=== PATIENT | male | born 1940 | race Caucasian/White ===

== ENCOUNTER 2024-06-09 12:59 | Emergency (ER) | payer MEDICARE, SELFPAY ==
[2024-06-09 13:08] VITALS: BP 144/84
[2024-06-09 13:29] LABS: % Basophils 0.5 % (0-2); % Eosinophils 1.1 % (0-6); % Immature Granulocytes 0.5 % (0-0.5); % Monocytes 13.6 % (1.7-9.3); % Neutrophils 59.3 % (42.2-75.2); Absolute Eosinophils 0.1 10^3/uL (0-0.7); Absolute Lymphocytes 1.4 10^3/uL (1.2-3.4); Absolute Monocytes 0.8 10^3/uL (0.1-0.6); Absolute Neutrophils 3.3 10^3/uL (1.4-6.5); Hematocrit 38.7 % (39.0-52.0); Mean Corp Hgb Conc. 33.6 g/dL (33.0-37.0); Mean Corpuscular Volume 98.2 fL (80.0-94.0); Mean Platelet Volume 10.2 fL (7.4-10.4); Nucleated Red Blood Cells % 0 % (-); Platelet Count 181 10^3/uL (130-400); Red Blood Cell Count 3.94 10^6/uL (4.70-6.10); Red Cell Dist. Width 13.6 % (11.5-14.5); White Blood Cell Count 5.5 10^3/uL (4.8-10.8)
[2024-06-09 13:43] LABS: ALT (SGPT) 28 U/L (0-50); AST (SGOT) 30 U/L (17-59); Albumin 4.5 g/dl (3.5-5.0); Alkaline Phosphatase 98 U/L (38-126); Blood Urea Nitrogen 30 mg/dl (9-20); Calcium 8.8 mg/dl (8.4-10.2); Carbon Dioxide 24 mmol/L (22-30); Chloride 108 mmol/L (98-107); Glucose 111 mg/dl (70-99); Potassium 4.8 mmol/L (3.5-5.1); Sodium 139 mmol/L (135-145); Total Bilirubin 0.9 mg/dl (0.2-1.3); eGFR 43.02
[2024-06-09 13:54] LABS: Troponin I < 0.012 ng/ml
[2024-06-09] MEDS: TYLENOL 650 MG PO (14:57)
--- NOTE | 2024-06-09 14:59 | ED.GENMED ---
History of Present Illness
General
Chief Complaint: Chest Pain
Source: patient, family and previous hospital records
Exam Limitations: none
Time Seen by Provider: 06/09/24 14:36
Nursing documentation reviewed up to this point in time: agreed with
History of Present Illness
History of Present Illness:
83-year-old male PAF on Xarelto hyperlipidemia no history of CAD presents with pain described as a dull ache in his left shoulder left anterior chest wall since last evening, no nausea vomiting diaphoresis been constant with movement of his
shoulder, no diaphoresis no hemoptysis, no prior episodes
Past History
Past History
ED Past Medical History: Arrthythmia and Hypercholesterolemia
Social History
Tobacco: Non-smoker
Alcohol: None
Drug: None
Personal:
Living: with family
Employment: Retired
Review of Systems
Review of Systems
All Other Systems: Not applicable
EENT: Reports no symptoms
Respiratory: Reports no symptoms
Cardiac: Reports chest pain
ABD/GI: Reports no symptoms
: Reports no symptoms
Musculoskeletal: Reports muscle stiffness; Denies edema
Skin: Reports no symptoms
Phy Exam
Physical Exam
Physical Exam:
Physical Exam
General: no apparent distress, not acutely ill
Neck: No jaundice
Heart: s1/s2 regular rate and rhythm, no murmur. equal radial pulses.
Lungs: no acute respiratory distress. clear bilaterally
Abdomen: Not tender
Neuro: alert and oriented. no focal neurological deficits
Skin: no rash
Psychiatric: well kept. interactive and cooperative
Extremities: no edema. no calf tenderness.
Scores
Heart Score for Chest Pain Patients
STEMI patient?: No
History: Slightly or Non-Suspicious
ECG: Normal
Age: >/= 65 years
Risk Factors: 1 or 2 Risk Factors
Troponin: </= Normal Limit
Heart Score for Chest Pain Patients: 3
Heart Score Risk: 2.5% MACE over next 6 weeks
Course
Orders/Labs/Results
Orders:
Orders
06/09/24 13:00
ECG [Electrocardiogram (*1)] Urgent
Reason for Study: Chest Pain
EKG- Treatment ONCE
06/09/24 13:19
Complete Blood Count/With Diff Urgent
Comprehensive Metabolic Panel Urgent
Troponin I Urgent
06/09/24 14:42
Acetaminophen [Tylenol] 650 mg PO NOW STA
CR Chest - 2 Views Urgent
Comment:
Reason For Exam: chest and shoulder pain
Abnormal Lab Results
06/09/24
13:19
RBC 3.94 L 10^6/uL
(4.70-6.10)
Hct 38.7 L %
(39.0-52.0)
MCV 98.2 H fL
(80.0-94.0)
MCH 33.0 H pg
(27.0-31.0)
Absolute Monos (auto) 0.8 H 10^3/uL
(0.1-0.6)
Monocytes % 13.6 H %
(1.7-9.3)
Chloride 108 H mmol/L
(98-107)
BUN 30 H mg/dl
(9-20)
Creatinine 1.6 H mg/dL
(0.7-1.3)
Glucose 111 H mg/dl
(70-99)
06/09/24 13:19
06/09/24 13:19
Vital Signs
Initial and Last Documented VS:
Initial Vital Signs
Temp Pulse Resp BP Pulse Ox
98.3 F 65 18 144/84 98
06/09/24 13:08 06/09/24 13:08 06/09/24 13:08 06/09/24 13:08 06/09/24 13:08
Last Documented Vital Signs
Temp Pulse Resp BP Pulse Ox
98.3 F 52 16 154/86 97
06/09/24 13:08 06/09/24 15:03 06/09/24 15:03 06/09/24 15:03 06/09/24 15:03
MDM/Problems Addressed
Differential Diagnosis Includes:
Noncardiac chest pain radicular pain no signs of acute embolus either to the long or to the arm not tachycardic not tachypneic strong distal pulses
MDM/Problems Addressed:
Chest pain
Chronic conditions affecting care:
A-fib'
Acute Exacerbation and/or Progression of Chronic Illness:
A-fib
*Radiology
Radiology exam reviewed: preliminary read by ED provider
*Pulse Oximetry
Patient hypoxic: no
*EKG
Interpreted by ED Provider?: Yes
Interpretation: normal
Comparison EKG: no comparison EKG present
Heart Rate: 70
Rate: normal
Rhythm: sinus
Ischemia: no ischemia
*Lift Driver Interpretation
Rate: normal
Interpretation: normal
Heart Rate: 70
Rhythm: sinus
*Critical Care Note
Total Time (30-74mins, 75-104mins- exclusive of procedures): Not Applicable
Update Note
Update Note:
Update, symptoms are atypical for ACS no diaphoresis no nausea vomiting does not go to the back, PE is unlikely he is anticoagulated, he has an undetectable troponin, not tachycardic not tachypneic chest x-ray noted
ED Attending Note
-
Portions of this chart may have been created with voice recognition software.� Occasional wrong word or��sound alike� substitutions may have occurred due to the inherent limitations of voice recognition software.
Discharge Plan
Departure
Patient Disposition: Home (Routine Discharge)
Date of Disposition: 06/09/24
Time of Disposition: 15:48
Patient with high blood pressure during this ER visit?: No
Condition: Good
Discharge Problem:
Chest pain
Instructions: Chest Pain PCP Follow Up
Activity Restrictions/Additional Instructions:
Rest, Tylenol as needed for pain every 4-6 hours, follow-up with Dr. Madrigal
Interventions
Interventions:
*Risk Screen - Suicide Last Done: 06/09/24 13:08
*General Assessment Last Done: 06/09/24 13:08
*Neglect/Abuse Screening Last Done: 06/09/24 13:08
ED- Fall Risk Assessment Last Done: 06/09/24 15:03
*ED COVID-19 Vaccine History Last Done: 06/09/24 15:03
ED- Cardiac Assessment Last Done: 06/09/24 15:03
Discharge Date and Time
Print Language: NIGERIEN
[2024-06-09 15:03] VITALS: BP 154/86; BMI 27.9
== END 2024-06-09 16:28 | disposition home or self-care (01) ==
LOC: EMR 12:59
PROVIDERS: Emergency Medicine; EMERGENCY PHYSICIAN Emergency Medicine; FAMILY PHYSICIAN Internal Medicine
DX: R07.9 Chest pain, unspecified (principal); E78.00 Pure hypercholesterolemia, unspecified; I48.0 Paroxysmal atrial fibrillation; Z79.01 Long term (current) use of anticoagulants
CPT/HCPCS: 99285; 71046; 80053; 84484; 85025; 93005

== ENCOUNTER → 2025-01-08 06:52 | Outpatient (REF) | payer MEDICARE, OTHER, SELFPAY ==
[2025-01-08] VITALS (8 sets, daily range): BP systolic 53–133; BP diastolic 61–75
[2025-01-08 07:17] LABS: Hematocrit 27.5 % (39.0-52.0); Hemoglobin 9.5 g/dL (13.0-18.0); Mean Corp Hgb Conc. 34.5 g/dL (33.0-37.0); Mean Corpuscular Volume 114.6 fL (80.0-94.0); Nucleated Red Blood Cells % 0 % (-); Platelet Count 175 10^3/uL (130-400); Red Cell Dist. Width 14.8 % (11.5-14.5)
[2025-01-08] MEDS: ATIVAN 0.5 MG PO (07:23)
[2025-01-08 08:00] LABS: INR 1.46; PT 18.0 Sec (11.4-14.6)
== END ==
LOC: RADI 06:52
PROVIDERS: ATTENDING PHYSICIAN Internal Medicine Hematology & Oncology; FAMILY PHYSICIAN Internal Medicine; REFERRING PHYSICIAN Physician Assistant
DX: D46.9 Myelodysplastic syndrome, unspecified (principal); N18.31 Chronic kidney disease, stage 3a; D68.8 Other specified coagulation defects
CPT/HCPCS: 36415; 38222; 77012; 85025; 85610; 88305; 88311; 88312; 88313

== ENCOUNTER 2025-02-05 21:01 | Inpatient (IN) | payer MEDICARE, OTHER, SELFPAY ==
[2025-02-05 14:18] VITALS: BP 120/76
[2025-02-05 14:43] LABS: Hematocrit 26.8 % (39.0-52.0); Hemoglobin 8.9 g/dL (13.0-18.0); Mean Corp Hgb Conc. 33.2 g/dL (33.0-37.0); Mean Corpuscular Volume 115.5 fL (80.0-94.0); Platelet Count 158 10^3/uL (130-400); Red Cell Dist. Width 14.6 % (11.5-14.5)
[2025-02-05 14:49] LABS: ALT (SGPT) 17 U/L (0-50); AST (SGOT) 20 U/L (17-59); Albumin 4.1 g/dl (3.5-5.0); Alkaline Phosphatase 98 U/L (38-126); Blood Urea Nitrogen 38 mg/dl (9-20); Calcium 8.4 mg/dl (8.4-10.2); Carbon Dioxide 24 mmol/L (22-30); Chloride 105 mmol/L (98-107); Glucose 109 mg/dl (70-99); Potassium 5.1 mmol/L (3.5-5.1); Sodium 136 mmol/L (135-145); Total Protein 6.8 g/dl (6.3-8.2); eGFR 34.79
[2025-02-05 15:04] LABS: Absolute Neutrophils -Man Diff 10.3 10^3/uL (1.4-6.5); Platelets Checked Yes
[2025-02-05 15:05] LABS: Anisocytosis 1+; Hypochromasia Slight; Normal RBC Morphology No; Polychromasia 1+; Stomatocytes 1+; Total Cells Counted 100
--- NOTE | 2025-02-05 17:44 | ED.GENMED ---
History of Present Illness
General
Chief Complaint: Musculo-Skeletal Complaint
Source: patient and spouse
Exam Limitations: none
Time Seen by Provider: 02/05/25 17:25
Nursing documentation reviewed up to this point in time: agreed with
History of Present Illness
History of Present Illness:
Patient presents to ED secondary to sudden onset of left hip pain, while he was in bed last night, which has worsened. Denies direct trauma. Denies fever or chills. Denies loss of sensation or weakness. Pain is minimal at rest, but worse with
movement, especially when weightbearing. Denies previous history of similar symptoms. Denies recent change in activities. Patient is very active, frequently biking outdoors with his , including the past 2 days. Does not have history of
previous hip pain. Of note, patient reports atraumatic right wrist pain and elbow pain earlier this year, which resolved over time spontaneously. Patient's past medical history is significant for left knee joint infection from Lyme's disease.
Past History
Past History
ED Past Medical History: Arrthythmia and Hypercholesterolemia
Social History
Tobacco: Non-smoker
Alcohol: None
Drug: None
Personal:
Living: with family
Employment: Retired
Review of Systems
Review of Systems
Allergies reviewed?: Yes
All Other Systems: ROS reviewed and negative except as documented in HPI and ROS
Constitutional: Reports no symptoms
Respiratory: Reports no symptoms
Cardiac: Reports no symptoms
ABD/GI: Reports no symptoms
Musculoskeletal: Reports other (hip pain)
Skin: Reports no symptoms
Neurological: Reports no symptoms
Phy Exam
Physical Exam
Physical Exam:
Physical Exam
General: no apparent distress, not acutely ill. afebrile
Head: nc/at. eomi
Neck: supple. normal range of motion.
Neuro: alert and oriented x 3. no focal neurological deficits
Skin: no rash
Psychiatric: well kept. interactive and cooperative
Extremities: mild left hip pain w elevation and internal rotation. no obvious deformity/erythema/swelling/ecchymosis
Course
Orders/Labs/Results
Orders:
Orders
02/05/25 14:24
Complete Blood Count/With Diff Urgent
Comprehensive Metabolic Panel Urgent
Lyme Progressive Urgent
Comment: ADDON
Manual Differential Urgent
02/05/25 17:42
Add On- LAB Urgent
Tests Added?: lyme titer
CR Hip - LT w/wo Pel 2-3 Vw* Urgent
Comment:
Reason For Exam: pain
Include a pelvis x-ray?: Yes
02/05/25 17:55
US Non Vasc LOWER Ext LT Urgent
Comment:
Reason For Exam: left hip pain, potential fluid collection
02/05/25 20:32
COVID-19 Antigen Urgent
Source: Nasal Swab
Lactic Acid Q4H
Comment: CANCEL 2nd LACTIC ACID IF 1st LACTIC ACID IS LESS THAN 2
Blood Culture Q30M
GIOVANA Source: Blood/Venous
Specimen Description:
Blood Culture Q30M
GIOVANA Source: Blood/Venous
Specimen Description:
02/05/25 20:49
Admit/Transfer Patient As Directed
Co-Sign Provider:
Level of Care: Inpatient admission
Assign to:: Medical/Surgical
Physician / Group: rigo
Diagnosis: joint effusion
Reason for Hospitalization: joint effusion
Expected length of stay greater than two midnights?: Yes
ELOS- Estimated Length of Stay in days: 2
I certify the patient meets the requirements for IP care: Yes
PRN Pain Medication Management As Directed
May give lesser potent ordered pain med per pt: Yes
preference::
Protocol:: Medication orders for pain may be administered in a
manner that supports deferring to patient preference
when the pt is:
- Requesting an ordered lesser potent pain medication.
Least to most potent pain medications are defined
as: acetaminophen < NSAID < tramadol < opioids
(morphine, oxycodone, hydromorphone).
- Requesting a lesser dose of the same medication IF
ORDERED.
- Requesting a less intrusive route of administration
if both routes are prescribed by the provider (PO <
IV).
02/05/25 20:51
Code Status As Directed
Resuscitation Status: Do not resuscitate
Reached after discussion with pt or family/Healthcare POA: Yes
02/05/25 20:52
DNR Bracelet Application ONCE
02/06/25 00:00
Lactic Acid Q4H
Comment: CANCEL 2nd LACTIC ACID IF 1st LACTIC ACID IS LESS THAN 2
Abnormal Lab Results
02/05/25
14:24
WBC 16.4 H 10^3/uL
(4.8-10.8)
RBC 2.32 L 10^6/uL
(4.70-6.10)
Hgb 8.9 L g/dL
(13.0-18.0)
Hct 26.8 L %
(39.0-52.0)
MCV 115.5 H fL
(80.0-94.0)
MCH 38.4 H pg
(27.0-31.0)
RDW 14.6 H %
(11.5-14.5)
Abs Neuts (Manual) 10.3 H 10^3/uL
(1.4-6.5)
Lymphocytes (Manual) 7 L %
(20-51)
Monocytes (Manual) 29 H %
(2-9)
BUN 38 H mg/dl
(9-20)
Creatinine 1.9 H mg/dL
(0.7-1.3)
Glucose 109 H mg/dl
(70-99)
Total Bilirubin 1.5 H mg/dl
(0.2-1.3)
02/05/25 14:24
02/05/25 14:24
Vital Signs
Initial and Last Documented VS:
Initial Vital Signs
Temp Pulse Resp BP Pulse Ox
98.2 F 84 16 120/76 95
02/05/25 14:18 02/05/25 14:18 02/05/25 14:18 02/05/25 14:18 02/05/25 14:18
Last Documented Vital Signs
Temp Pulse Resp BP Pulse Ox
99.9 F 82 16 151/71 96
02/05/25 20:43 02/05/25 17:54 02/05/25 17:54 02/05/25 17:54 02/05/25 17:54
MDM/Problems Addressed
MDM/Problems Addressed:
Patient reports temperature of 100.5 at home earlier today. In light of patient's immunocompromise state, with recent diagnosed MDS, along with leukocytosis and atraumatic nature of left hip pain, raises possibility of potential infectious
etiology. Discussed with on-call ID physician, , who recommends withholding antibiotics until joint effusion can be aspirated.
Blood culture pending. Lyme titer pending
*Pulse Oximetry
SaO2: 95
Oxygen Mode of Delivery: Room air
Patient hypoxic: no
*Critical Care Note
Total Time (30-74mins, 75-104mins- exclusive of procedures): Not Applicable
ED Attending Note
-
Portions of this chart may have been created with voice recognition software.� Occasional wrong word or��sound alike� substitutions may have occurred due to the inherent limitations of voice recognition software.
Discharge Plan
Departure
Patient Disposition: Admit
Date of Disposition: 02/05/25
Time of Disposition: 20:04
Admit to: Telemetry
Presentation/result/management discussed w/ accepting MD/DO: Hospitalist
Discharge Problem:
Acute hip pain, Fever
Prescriptions:
No Action
latanoprost 0.005 % Drops
1 drp OPHTHALMIC (EYE) QPM
atorvastatin 40 mg Tablet
40 mg PO DAILY
carvedilol 25 mg Tablet
25 mg PO BID
lisinopril 20 mg Tablet
20 mg PO BID
Xarelto 15 mg Tablet
15 mg PO QPM
Referrals:
Clay Weber MD, [Family Provider, Internal Medicine]
Interventions
Interventions:
*Risk Screen - Suicide Last Done: 02/05/25 14:20
*General Assessment Last Done: 02/05/25 18:04
*Neglect/Abuse Screening Last Done: 02/05/25 14:20
*ED- Fall Risk Assessment Last Done: 02/05/25 18:03
*ED COVID-19 Vaccine History Last Done: 02/05/25 18:03
ED-Musculoskeletal Assessment Last Done: 02/05/25 18:06
Discharge Date and Time
Print Language: SWEDISH
[2025-02-05 17:54] VITALS: BP 151/71
[2025-02-05 18:01] VITALS: BMI 29.9
[2025-02-05 20:18] VITALS: BP 143/71
[2025-02-05 20:50] LABS: COVID-19 Antigen Negative (Negative)
--- NOTE | 2025-02-05 20:56 | HPS.HSE ---
Addendum entered and electronically signed by Cora Fernandez MD 02/05/25 21:08:
Patient with fever 100.5. Ordered synovial fluid studies with cell count with Gram stain, fluid crystals to evaluate for septic arthritis/gout. Check ESR and CRP.
Original Note:
Family Physician
-
Family Physician: Clay Weber
Chief Complaint
-
left hip pain
History of Present Illness
84-year-old male past medical history of recently diagnosed MDS 6 months ago, history of Lyme's disease involving the left knee status post multiple arthrocentesis 20 years ago, rheumatoid arthritis around 20 years ago previously on treatment with
infusion, paroxysmal atrial fibrillation on Xarelto, hypertension, hyperlipidemia, presenting with left hip pain since yesterday and weakness in the left leg. Pain is worse with movement or weightbearing. He has been active biking outdoors with
his over the past 2 days noticed the pain only yesterday. Today he had a fever of 100.5.
Over the past few weeks he has also developed pain in his right wrist which he thought was carpal tunnel and left elbow which have resolved.]
He is out in the garden frequently but denies any tick bites or rashes.
He states that he had Lyme's disease in his left knee over 20 years ago which required multiple rounds of arthrocentesis. This never recurred. He also had rheumatoid arthritis around the same time and was on immunotherapy and infusions which were
eventually stopped and he has not had any reoccurrence several years.
He denies any joint replacements.
He denies smoking or alcohol use.
No family history of rheumatoid conditions.
Medical History
Past Medical History
Past Medical History: Reports Other (MDS 6 months ago, history of Lyme's disease involving the left knee status post multiple arthrocentesis 20 years ago, rheumatoid arthritis around 20 years ago previously on treatment with infusion, paroxysmal
atrial fibrillation on Xarelto, hypertension, hyperlipidemia)
Past Surgical History: Reports Other (Hernia repair)
Social History
Tobacco: Non-smoker
Alcohol: None
Drug: None
Family History
Family History: Not pertinent
Allergies / Home Medications
Allergies reflects when Allergies were last updated in [facility].
Home Medications with original date entered in [facility]
Allergy/Medication List:
Allergies
Allergy/AdvReac Type Severity Reaction Status Date / Time
No Known Allergies Allergy Verified 01/08/25 07:43
Home Medications
atorvastatin 40 mg tablet 40 mg PO DAILY 01/08/25
carvedilol 25 mg tablet 25 mg PO BID 01/08/25
latanoprost 0.005 % eye drops 1 drp ophthalmic (eye) QPM 01/08/25
lisinopril 20 mg tablet 20 mg PO BID 01/08/25
rivaroxaban 15 mg tablet (Xarelto) 15 mg PO QPM 01/08/25
Review of Systems
-
History Source: Patient
A 12 point ROS was completed and negative except as noted: Yes
Constitutional: Reports No Symptoms
EENT: Reports No Symptoms
Respiratory: Reports No Symptoms
Cardiac: Reports No Symptoms
Abdomen/GI: Reports No Symptoms
: Reports No Symptoms
Musculoskeletal: Reports See HPI
Skin: Reports No Symptoms
Neurological: Reports No Symptoms
Endocrine: Reports No Symptoms
Hematologic/Lymphatic: Reports No Symptoms
Psych: Reports No Symptoms
Physical Exam
Vital Signs
Vital Signs
Temp Pulse Resp BP Pulse Ox
99.9 F 82 16 151/71 96
02/05/25 20:43 02/05/25 17:54 02/05/25 17:54 02/05/25 17:54 02/05/25 17:54
Physical Exam
General: Well Developed, Well Nourished and No Apparent Distress
HEENT: NormoCephalic, Moist mucous membranes and Atraumatic
Respiratory: Clear
Cardiac: S1/S2 and Regular Rhythm; No Murmur or Rub
GI: Soft, Non Tender, Non Distended and Normal Bowel Sounds; No Organomegaly
Rectal: Deferred by Provider
Musculoskeletal: No Clubbing, No Cyanosis, No Edema and Other (left hip tenderness )
Skin: No Rash
Neuro: Nonfocal/grossly intact
Laboratory Results
-
02/05/25 14:24
02/05/25 14:24
Laboratory Results
Lactic Acid 0.8 mmol/L (0.7-2.0) 02/05/25 20:32
Total Bilirubin 1.5 mg/dl (0.2-1.3) H 02/05/25 14:24
AST 20 U/L (17-59) 02/05/25 14:24
ALT 17 U/L (0-50) 02/05/25 14:24
Alkaline Phosphatase 98 U/L (38-126) 02/05/25 14:24
Data Reviewed
-
Lab Data: Labs Reviewed by me
Old Records: Reviewed
Impression/Plan
-
IMPRESSION:
PLAN:
# Left hip joint effusion concerning for recurrence of rheumatoid arthritis versus Lyme's disease
- Hip x-ray shows small left hip joint effusion
- Blood cultures pending
- Lyme testing pending
- IR consulted for joint aspiration tomorrow
-ID recommended holding off on antibiotics for now until joint aspiration can be performed
- Hold Xarelto for now until aspiration can be performed
-Ortho requested to be consulted if aspirate culture is positive
Myelodysplastic syndrome
- Further outpatient testing planned for this week to start potential treatment
History of left knee joint infection secondary to Lyme's disease
History of rheumatoid arthritis
-Previously on immunotherapy/infusion
Paroxysmal atrial fibrillation
-Hold Xarelto for now
Essential hypertension
- Continue lisinopril, Coreg
Hyperlipidemia
- Continue statin
DNR/DNI
DVT prophylaxis�SCDs
Regular diet
[2025-02-05 22:20] VITALS: BP 113/70; BMI 29.4
--- NOTE | 2025-02-05 22:20 | PTCARENOTE ---
Received patient from ED via stretcher. Patient stood and pivoted from stretcher to bed x1 assist. AAOx3, states pain in left hip only when walking. Oriented patient to room and placed call cain within reach.
[2025-02-05 22:38] VITALS: BMI 29.4
[2025-02-05 23:52] LABS: C-Reactive Protein 128.80 mg/L (0.0-10.00)
[2025-02-06 07:12] VITALS: BP 116/57
--- NOTE | 2025-02-06 07:55 | W.PN.HOSP.TC ---
Addendum entered and electronically signed by Lit Rizzo MD 02/06/25 23:08:
Attending Addendum-
I saw and evaluated the patient. I reviewed the resident�s note and agree with findings and plan as documented in the resident�s note. Sub:patient now complains if right thigh pain. started on left. nurse states he is having decreased urine output.
unable to walk or lift leg without pain in thighs. was febrile 100.5 ON and not recorded. Patient denies all other constitutional sxs. Full 12 point ROS reviewed and negative except as documented Exam: Vitals reviewed in chart GEN-NAD heart RRR no
MRG lungs clear abd soft LE no edema Neuro AAO x 3 MS 3/5 b/l LE TTP thighs b/l pulses intact DP B/L Skin no rash Back NTTP no CVA tenderness
Plan:
# SIRS - unclear etiology , b/l prox thigh pain and weakness
- urine cx - P
- Hip US shows small left hip joint effusion
- Blood cultures pending
- Lyme and JUMA testing pending
- IR for joint aspiration today - send for analysis
- ID recommended holding off on antibiotics for now
- Hold Xarelto for now
- repeat CBC in am
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
-baseline @ 1.5
-check FeNa and renal US
-start IVF
-repeat BMP in am
# Decreased Urine Output
- check bladder scan
- start IVF
# Myelodysplastic syndrome/macrocytic anemia- check b12, folate, tx for hb < 7, bmbx on 01/08- D/w heme onc
# History of left knee joint infection secondary to Lyme's disease
# History of psoriatic arthritis-Previously on immunotherapy/infusion Rheum Dr. Peres
# Paroxysmal atrial fibrillation-Hold Xarelto for now restart in am
# Essential hypertension- Continue lisinopril, Coreg
# Hyperlipidemia-hold atorvastatin for now
DNR/DNI->Full confirmed with POA
DVT prophylaxis�SCDs
Regular diet
ACP
Patient consented to discuss, was alone but d/w POA, time spent explanation of advance directives, changes in health status, patient�s health care wishes if the patient becomes unable to make health decisions, goals of care, code status, and
prognosis 'ill be Full code while in here' - 16 minutes
Time spent coordinating care, review of plan of care with resident, personally reviewed previous records in EMR, med rec, labs, radiology, d/w nursing, family total time documented is exclusive of any additional time listed that was spent in advance
care planning discussion -�54 minutes
Original Note:
Today's Communication/Plan
-
To start IV antibiotics for Sepsis, Joint and urinary infection
Assessment / Plan
Assessment / Plan
#Bilateral lower extremity pain, Left hip effusion with intermittent fevers
#Inflammatory joint pathology, Keep in view infectious ddx crystal induced
-Small left hip joint effusion, trace fluid on the right
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
-Elevated WBC-16.4, ESR-69, CRP-128.8, Procalcitonin-0.47, CK - 97 n
-Patient scheduled for Interventional radiology for effusion aspiration and fluid analysis
Fluid Analysis (WBC- 38,010, PMN- 74%, No crystals),
Gram stain, Culture, Sensitivity pending, JUMA, Lyme serology pending
-ID/ Ortho consulted
-Commence Vancomycin
#Sepsis with urinary tract infection
Urinalysis showed Leukocytes Esterase 3+, WBC- with culture, blood culture
#Acute kidney injury on CKD
-Urine output since admission- 350ml last night
-Elevated BUN/Cr (31/1.8)
#History of rheumatoid arthritis
-Previously on immunotherapy/infusion
#Myelodysplastic syndrome
- Further outpatient testing planned for this week to start potential treatment
-Likley cause of Macrocytic anemia
-Hb 8.4, MCV 113
#Paroxysmal atrial fibrillation
- Xarelto on hold
#Essential hypertension
- Continue lisinopril, Coreg
#Hyperlipidemia
- Continue statin
DNR/DNI
DVT prophylaxis�SCDs
Regular diet
Anticipated Discharge: > 48 hours
Subjective/Interval History
-
Date of Service: February 06, 2025
Patient seen.
Complains of bilateral hip and thigh pain, worsened with mobility, L.R
Had fever last night 100.5
Objective Data
-
Labs:
Laboratory Results
02/06/25
07:09
WBC Pending
Hgb Pending
Hct Pending
Plt Count Pending
Sodium Pending
Potassium Pending
Chloride Pending
Carbon Dioxide Pending
BUN Pending
Creatinine Pending
Glucose Pending
Calcium Pending
Total Bilirubin Pending
AST Pending
ALT Pending
Alkaline Phosphatase Pending
Vital Signs:
Vital Signs
Temp Pulse Resp BP Pulse Ox
98.7 F 85 20 113/70 96
02/05/25 23:04 02/05/25 22:20 02/05/25 22:20 02/05/25 22:20 02/05/25 22:30
I&O
02/05/25 02/06/25 02/07/25
06:59 06:59 06:59
Output Total 250 / 250
Balance -250 / -250
Review of Systems
-
History Source: Patient
Constitutional: Reports Fever
EENT: Reports No Symptoms Reported
Respiratory: Reports No Symptoms
Cardiac: Reports No Symptoms
Abdomen/GI: Reports No Symptoms
Musculoskeletal: Reports Joint Pain (Bilateral hip tenderness L.R worsened with mobility, )
Skin: Reports No Symptoms
Neuro: Reports No Symptoms
Hematologic / Lymphatic: Reports No Symptoms
Physical Exam
-
General: Well Developed
HEENT: Normocephalic
Respiratory: Clear to Auscultation
Cardiac: Regular Rhythm and S1/S2
GI: Soft and Nontender
Musculoskeletal: Other (Diffuse upper thigh with motion)
Psych: Calm
Data Reviewed
-
Labs: Labs Reviewed by me, Discussed with Physician and Discussed with Patient
[2025-02-06 08:24] LABS: ALT (SGPT) 15 U/L (0-50); AST (SGOT) 18 U/L (17-59); Albumin 3.5 g/dl (3.5-5.0); Alkaline Phosphatase 94 U/L (38-126); Blood Urea Nitrogen 31 mg/dl (9-20); Calcium 7.9 mg/dl (8.4-10.2); Carbon Dioxide 22 mmol/L (22-30); Chloride 107 mmol/L (98-107); Estimated Creatinine Clearance 34 ml/min; Glucose 124 mg/dl (70-99); Potassium 4.5 mmol/L (3.5-5.1); Sodium 135 mmol/L (135-145); Total Protein 5.8 g/dl (6.3-8.2); eGFR 37.12
[2025-02-06 08:31] LABS: Hematocrit 24.2 % (39.0-52.0); Hemoglobin 8.4 g/dL (13.0-18.0); Mean Corp Hgb Conc. 34.7 g/dL (33.0-37.0); Mean Corpuscular Volume 113.1 fL (80.0-94.0); Platelet Count 149 10^3/uL (130-400); Red Cell Dist. Width 14.4 % (11.5-14.5)
[2025-02-06 08:45] VITALS: BMI 29.4
[2025-02-06] MEDS: LIPITOR 40 MG PO (09:03)
[2025-02-06] MEDS: COREG 25 MG PO (09:04)
[2025-02-06] MEDS: ZESTRIL 20 MG PO (09:04)
[2025-02-06 09:37] LABS: Absolute Neutrophils -Man Diff 9.3 10^3/uL (1.4-6.5); Anisocytosis Slight; Hypochromasia Slight; Microcytosis Slight; Normal RBC Morphology No; Platelets Checked Yes
[2025-02-06 09:38] LABS: Total Cells Counted 100
[2025-02-06] MEDS: NSS 1000 IV ×2 (12:11→23:03)
--- NOTE | 2025-02-06 12:20 | CON.ID ---
Consultation
-
Date/Time Consultation Requested: 02/05/2025 2209
Date/Time Consultation Performed: 02/06/2025 1220
Requesting Provider: Dr. Fernandez
Performing Provider: Dr. Orosco
Reason for Consultation: Left hip pain; low-grade fever
Chief Complaint / Past History
History of Present Illness
Jose Ramon Aponte is an 84-year-old male with a significant history of MDS being evaluated at the request Dr. Fernandez regarding fever and leukocytosis. History is obtained from chart review, along with patient interview.
The patient presents to [facility] 02/05 following the development of left hip pain which has increased over the day., When further clarified, the patient reports that he has left quadriceps discomfort when he attempts to raise his leg, and
does not actually have left hip discomfort per se. At home he remembers that he had a temperature to 100.5, but none here. He has no pain with extension of his lower extremity. He denies any hip joint pain.
He recalls that several weeks ago he had a right wrist pain that persisted for approximately 4 weeks but has since resolved. He also has developed new left elbow discomfort over the past week, but that has also likewise resolved. He presents to
the hospital for further evaluation of the left leg pain. The patient reports that he has a remote history of Lyme arthritis of the left knee approximately 20 years ago. He denies any pain in the knee area at this time.
Past History
Additional Past Medical History:
MDS
Remote history Lyme disease
Rheumatoid arthritis
P A-fib
HTN
HLD
Additional Past Surgical History:
Hernia repair
Allergy History:
No Known Allergies Allergy (Verified 01/08/25 07:43)
Medications Reviewed: Yes
Current Antibiotics:
None
Social History
Tobacco: Non-Smoker
Alcohol: None
Drug: None
Personal:
Living: With Family
Employment: Retired
Family History
Family History: Not Pertinent
Review of Systems
Vital Signs
Temp Pulse Resp BP Pulse Ox
99.3 F 78 20 119/64 93
02/06/25 07:12 02/06/25 09:04 02/06/25 07:12 02/06/25 09:04 02/06/25 08:45
Physical Exam
Physical Exam
Constitutional: No Acute Distress, Comfortable and Non-toxic
Eyes: No Conjunctival Hemorrhage and Sclera Anicteric
Oral: No Thrush and No Ulcers
Cardiovascular: Regular Rate and S1/S2; Negative S3/S4
Pulmonary: Clear; Negative Wheezes, Rales or Rhonchi
Gastrointestinal: Soft, Non Tender, Non Distended and Normal Bowel Sounds
Extremities: Negative Edema, Cyanosis, Erythema, Splinter Hemorrhage, Calf Swelling or Venous Insufficiency
Musculoskeletal: Other (Left quadriceps tenderness with palpation (mild)); Negative Joint Swelling or Joint Effusion
Skin: Warm and Dry; Negative Rash or Jaundice
Neurological: Awake and Alert
Psychological: Calm
Lab / Diagnostic Study Results
02/06/25 07:09
02/06/25 07:09
Total Counted 100 02/06/25 07:09
Abs Neuts (Manual) 9.3 10^3/uL (1.4-6.5) H 02/06/25 07:09
Segmented Neutrophils 58 % (42-75) 02/06/25 07:09
Band Neutrophils 0 % (0-3) 02/06/25 07:09
Lymphocytes (Manual) 12 % (20-51) L 02/06/25 07:09
ESR 69 mm/hour (0-20) H 02/05/25 23:07
Lactic Acid 0.8 mmol/L (0.7-2.0) 02/05/25 20:32
C-Reactive Protein 128.80 mg/L (0.0-10.00) H 02/05/25 14:24
Microbiology Results
Micro:
02/05/25 20:32 Blood Culture - Pending
Blood/Venous
02/05/25 20:32 Blood Culture - Pending
Blood/Venous
Imaging:
02/05/2025 Lower extremity ultrasound: small left hip joint effusion. Trace joint fluid in the contralateral right hip which was imaged for comparison.
02/05/2025 X-ray left hip: no fracture or dislocation. Bony pelvis intact. Moderate bilateral hip joint space narrowing with subchondral sclerosis, subchondral cysts and marginal osteophytes.
Assessment / Plan
Left leg pain with flexion; unclear etiology
Leukocytosis
Reported fever
Elevated ESR and CRP
Renal insufficiency
Elevated procalcitonin
- unclear utility / validity in the context of renal insufficiency.
MDS
Remote history Lyme disease
Rheumatoid arthritis
P A-fib
HTN
HLD
Recommendations:
Etiology of left leg discomfort is unclear at this time. Physical exam does not seem to indicate that this is a joint issue, though.
Would continue to observe off antibiotics.
Blood cultures and urine culture are pending.
Continue to monitor white count and temperature curve.
Further recommendations as additional data is returned.
[2025-02-06 13:09] LABS: Procalcitonin 0.47 ng/ml (0.0-0.25)
[2025-02-06 14:45] LABS: Urine Character Slightly Cloudy (Clear)
--- NOTE | 2025-02-06 15:00 | TRANSFER ---
report given to Ailin on [facility]. pt sent to room 2131 post IR L hip steroid injection. VSS after IR procedure. pt taken down to 2N in WC by PCT.
[2025-02-06 15:03] VITALS: BP 104/52; BP_SYST 72
[2025-02-06 15:04] LABS: Urine Red Blood Cell 0-2 /HPF (0-2)
[2025-02-06 15:05] LABS: Urine White Cell 70-80 /HPF (0-5)
--- NOTE | 2025-02-06 15:52 | CM ---
Alert awake oriented patient who lives with his Catalina who lives in a 2 story home with 2 step to enter and 15 steps to bed and bathroom. He is independent in driving and in all activities of daily living.He was offered VN he declined need.No
adaptive devices.
No VN hx / No SNF history
Pharmacy [facility]
PCP DR Canas
PLAN Home Declined VN
[2025-02-06 16:22] VITALS: BP 110/69
[2025-02-06 16:48] LABS: Body Fluid Second Tech EYM
[2025-02-06 17:00] VITALS: BP 100/64
[2025-02-06] MEDS: XALATAN OPHTHALMIC SOLUTION 1 DROP OPHTH (17:07)
--- NOTE | 2025-02-06 18:18 | PHA.VAN.IN ---
Assessment
- Assessment
Renal Function: Unknown baseline
Plan
- Plan
Initial / Loading Dose: vanc 2000mg pending administration
Maintenance Regimen: dosing by level
Monitoring: random level 8 AM
Pharmacokinetics Vancomycin I
- -
Patient Age: 84
Patient Sex: Male
Vancomycin Day #: 1
Indication: Bone And Joint
Requesting Provider: Dr. Vale
Pertinent Antimicrobial Allergies:
no pertinent antimicrobial allergies
Height / Weight:
Height 5 ft 11 in
Actual Weight 95.51 kg
- Vital Signs / Lab Results
Temp Pulse Resp BP Pulse Ox
98.3 F 81 16 100/64 96
02/06/25 17:00 02/06/25 17:00 02/06/25 17:00 02/06/25 17:00 02/06/25 17:00
Lab Results - Hematology
02/05/25 02/06/25
14:24 07:09
WBC 16.4 H 16.1 H
Band Neutrophils 0 0
Lab Results - Chemistry
02/05/25 02/06/25
14:24 07:09
BUN 38 H 31 H
Creatinine 1.9 H 1.8 H
Estimated Creat Clear 34
Albumin 4.1 3.5
02/05/25
20:32
Lactic Acid 0.8
Lab Results - Urine
02/06/25
14:31
Urine Nitrite (Reflex) Negative
Leukocyte Esterase Rfl 3+ A
Urine WBC (Reflex) 70-80 A
Ur Squamous Epith Cells 3-5
Urine Bacteria (Reflex) Moderate A
[2025-02-06] MEDS: VANCOCIN 540 MG IV (18:27)
[2025-02-06] MEDS: COREG PO (21:08)
[2025-02-06] MEDS: ZESTRIL PO (21:10)
[2025-02-06 23:46] VITALS: BP 115/53
[2025-02-07] MEDS: TYLENOL 650 MG PO ×2 (03:49→14:10)
[2025-02-07 07:00] VITALS: BP 108/58
--- NOTE | 2025-02-07 07:27 | W.PN.HOSP.TC ---
Addendum entered and electronically signed by Lit Rizzo MD 02/07/25 21:58:
Attending Addendum-
I saw and evaluated the patient. I reviewed the resident�s note and agree with findings and plan as documented in the resident�s note. Sub:patient now complains of right knee pain but overall pain is greatly improved. started on left thigh ->right
thigh->right knee. Patient denies all other constitutional sxs. No fevers chills. Full 12 point ROS reviewed and negative except as documented Exam: Vitals reviewed in chart GEN-NAD heart RRR no MRG lungs clear abd soft LE no edema Neuro AAO x 3
MS 5/5 b/l LE TTP thighs b/l pulses intact DP B/L Skin no rash Back NTTP no CVA tenderness
Plan:
# SIRS - unclear etiology , b/l prox thigh pain and weakness
- urine cx -NGTD
- Hip US -left hip joint effusion
- Blood cultures NGTD
- Lyme and SHELLEY testing pending
- IR joint aspiration 02/06- wbc 38K majority PMNs r/o infection cx sent send for cytology shelley and lyme
- cont vancomycin for now day # 2
- Hold Xarelto for now
- repeat CBC in am
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
-baseline @ 1.5
-worsening
-check FeNa->prerenal
-renal US-Simple right renal cyst measures 8.3 x 6.3 x 6.2 cm. There are two simple left renal cysts, one parapelvic 1.7 x 2.5 x 1.5 cm and additional medial measuring 3.4 x 3.5 x 3.8 cm.
-No evidence of renal collecting system dilatation bilaterally.
-cont IVF
-repeat BMP in am
-hold lisinopril
# Acute Anemia
- repeat H and H to verify, likely dilutional
- transfusion for HB < 7
- check peripheral smear
- h/o MDS c/s heme onc
# Decreased Urine Output
- improving
- cont IVF
# Leukocytosis
- not resolving, c/s heme onc
- repeat cbc in am
# Hyponatremia- mild
- from hypovolemia
- cont IVF
# Myelodysplastic syndrome/macrocytic anemia- check b12, folate, tx for hb < 7, bmbx on 01/08- c/s heme onc for eval
# History of left knee joint infection secondary to Lyme's disease
# History of psoriatic arthritis-Previously on immunotherapy/infusion Rheum Dr. Peres
# Paroxysmal atrial fibrillation-Hold Xarelto for now restart in am if h and h stable
# Essential hypertension- Continue lisinopril, Coreg
# Hyperlipidemia-hold atorvastatin for now
DNR/DNI->Full confirmed with POA
DVT prophylaxis�SCDs
Regular diet
Time spent coordinating care, review of plan of care with resident, personally reviewed records in EMR, med rec, consults, notes, labs, radiology, d/w nursing � 53 mins
Original Note:
Today's Communication/Plan
-
Inflammatory pathology with unclear etiology
Review with pending investigations
Assessment / Plan
Assessment / Plan
#Systemic inflammatory response syndrome of unclear pathology
#Elevated WBC-16.4, ESR-69, CRP-128.8, Procalcitonin-0.47, CK - 97N
Repeat WBC, PM- 16.6
-ID Consult noted with thanks
-Started on Vancomycin (Day 2)
-Pending Lyme, Shelley testing
-Do peripheral blood smear
#Proximal thigh pain and weakness
-X-ray of the hip done showed hip effusion, bilateral moderate osteoarthritis
-Joint ultrasound boipsy done (02/06/2025) fluid sent for (WBC- 38,010, PMN- 74%, No crystals, Gram stain -
Culture, Sensitivity pending
Add on Fluid Cytology, SHELLEY, Lyme
-Ortho consult noted with thanks
Get PT
#Possible Sepsis with urinary tract infection
WBC 16.4(repeat PM-16.6),
Urinalysis showed Leukocytes Esterase 3+, WBC- with
Hold of on ABx, await culture and sensitivity
#Worsening anemia
#History of Mylodysplastic syndrome
-RBC- 1.8 (pm- 2.23), Hb 7.3 (pm- 8.6)
-Check B12, Folate, repeat cbc am
-Hemonc consult
#Acute kidney injury on CKD
--Nephro consult noted with thanks
- Fena is 0.6
-Hold lisinopril
-Cont on IVF
-Urine output since admission- I/O 480ml
-Elevated BUN/Cr (31/1.8)
-Repeat BUN/Cr
#History of rheumatoid arthritis
-Previously on immunotherapy/infusion
-Current joint pains
- Do serologies
#Myelodysplastic syndrome
- Further outpatient testing planned for this week to start potential treatment
-Likley cause of Macrocytic anemia
-Hb 8.4, MCV 113
#Paroxysmal atrial fibrillation
- Xarelto on hold
-Continue Coreg
#Essential hypertension
- Discontinue lisinopril,
-Continue Coreg
#Hyperlipidemia
- Hold statin
DNR/DNI
DVT prophylaxis�SCDs
Regular diet
Anticipated Discharge: > 48 hours
Subjective/Interval History
-
Date of Service: February 07, 2025
Patient seen.
No new complains
Leg pain is reducing, patient is ambulating better
Objective Data
-
Labs:
Laboratory Results
02/07/25 02/07/25 02/07/25
06:46 06:47 07:11
WBC Pending
Hgb Pending
Hct Pending
Plt Count Pending
Sodium Pending Cancelled
Potassium Pending Cancelled
Chloride Pending Cancelled
Carbon Dioxide Pending Cancelled
BUN Pending Cancelled
Creatinine Pending Cancelled
Glucose Pending Cancelled
Calcium Pending Cancelled
Vital Signs:
Vital Signs
Temp Pulse Resp BP Pulse Ox
99.7 F 76 16 115/53 97
02/06/25 23:46 02/06/25 23:46 02/06/25 23:46 02/06/25 23:46 02/07/25 01:11
I&O
02/06/25 02/07/25 02/08/25
06:59 06:59 06:59
Intake Total 480 / 480
Output Total 250 / 250 100 / 100
Balance -250 / -250 380 / 380
Review of Systems
-
History Source: Patient
Constitutional: Reports No Symptoms
EENT: Reports No Symptoms Reported
Respiratory: Reports No Symptoms
Cardiac: Reports No Symptoms
Abdomen/GI: Reports Diarrhea and Other (Produced clear mucoid stool today)
Genitourinary: Reports No Symptoms
Musculoskeletal: Reports Arthralgias (hip and thigh pain)
Physical Exam
-
General: Well Developed and No Apparent Distress
HEENT: Normocephalic
Respiratory: Clear to Auscultation
Cardiac: Regular Rhythm and S1/S2
GI: Soft and Nondistended
Musculoskeletal: No Clubbing, No Cyanosis, No Edema, Clubbing, Edema, Right Lower Extrem (Tenderness on mobility/Flexion, reduced (however, more than the left). ) and Edema, Left Lower Extrem (Tenderness on mobility/Flexion reduced, (less than the
right))
Psych: Calm
Data Reviewed
-
Labs: Labs Reviewed by me, Discussed with Physician and Discussed with Patient
[2025-02-07 07:54] LABS: Blood Urea Nitrogen 33 mg/dl (9-20); Calcium 7.5 mg/dl (8.4-10.2); Carbon Dioxide 22 mmol/L (22-30); Chloride 107 mmol/L (98-107); Estimated Creatinine Clearance 30 ml/min; Glucose 117 mg/dl (70-99); Potassium 4.0 mmol/L (3.5-5.1); Sodium 133 mmol/L (135-145); eGFR 32.71
[2025-02-07 08:26] LABS: Hematocrit 21.0 % (39.0-52.0); Hemoglobin 7.3 g/dL (13.0-18.0); Mean Corp Hgb Conc. 34.8 g/dL (33.0-37.0); Mean Corpuscular Volume 114.1 fL (80.0-94.0); Platelet Count 146 10^3/uL (130-400); Red Cell Dist. Width 14.5 % (11.5-14.5)
[2025-02-07 09:01] VITALS: BP 108/58
[2025-02-07] MEDS: COREG PO (09:03)
[2025-02-07] MEDS: ZESTRIL PO (09:03)
[2025-02-07] MEDS: NSS 1000 IV ×2 (09:23→21:37)
[2025-02-07] MEDS: COREG 25 MG PO ×2 (09:24→20:57)
--- NOTE | 2025-02-07 09:56 | PHA.VAN.FU ---
Addendum entered and electronically signed by Vianey Cid [facility] 02/07/25 10:22:
Agree with assessment and plan
Original Note:
Vancomycin Assessment / Plan
- Assessment
Renal Function: SCR Increasing
WBC's are: Stable
In the past 24 hrs, patient has been: Afebrile
- Assessment - Therapeutic Drug Monitoring
Random Level: 13.5 - drawn ~12.25H after loading dose of 2000mg
- Dosing Plan
Dosing by Level: Re-dose today (give 1000mg x1 dose)
- Monitoring Plan
Random Level: 02/08 0600
- Follow Up
Pharmacy will continue to follow.
Vancomycin Follow UP
- -
Patient Age: 84
Patient Sex: Male
Vancomycin Day #: 2
Indication: Bone And Joint
Requesting Provider: Dr. Vale/Dr. Orosco
Pertinent Antimicrobial Allergies:
no pertinent antimicrobial allergies
Height / Weight:
Height 5 ft 11 in
Actual Weight 95.51 kg
- Vital Signs / Lab Results
Temp Pulse Resp BP Pulse Ox
99.7 F 73 16 108/58 97
02/06/25 23:46 02/07/25 09:24 02/06/25 23:46 02/07/25 09:01 02/07/25 01:11
Lab Results - Hematology
02/05/25 02/06/25 02/07/25
14:24 07:09 06:47
WBC 16.4 H 16.1 H 16.4 H
Band Neutrophils 0 0
Lab Results - Chemistry
02/05/25 02/06/25 02/07/25
14:24 07:09 06:46
BUN 38 H 31 H 33 H
Creatinine 1.9 H 1.8 H 2.0 H
Estimated Creat Clear 34 30
Albumin 4.1 3.5
02/07/25
07:11
BUN Cancelled
Creatinine Cancelled
Estimated Creat Clear Cancelled
Albumin
02/05/25
20:32
Lactic Acid 0.8
Lab Results - Urine
02/06/25
14:31
Urine Nitrite (Reflex) Negative
Leukocyte Esterase Rfl 3+ A
Ur Squamous Epith Cells 3-5
Microbiology Results
02/06/25 14:31 Urine Culture - Final
Urine No Significant Growth
02/05/25 20:32 Blood Culture - Preliminary
Blood/Venous No Growth in 24 hours- Final report to follow
02/05/25 20:32 Blood Culture - Preliminary
Blood/Venous No Growth in 24 hours- Final report to follow
02/06/25 22:09 Gram Stain - Preliminary
Synovial Fluid
Therapeutic Drug Monitoring
Random Vancomycin 13.5 ug/ml 02/07/25 06:46
[2025-02-07 10:43] LABS: Folate 4.9 ng/ml (2.76-20); Vitamin B12 266 pg/ml (239-931)
--- NOTE | 2025-02-07 10:49 | CON.ORTHO ---
Consultation
-
Date/Time Consultation Requested: 02/06/2025
Date/Time Consultation Performed: 02/07/2025
Requesting Provider: Dr. Vale
Performing Provider: Trisha Pittman PA-C, for Dr. Noble
Reason for Consultation: Left hip pain, r/o septic joint
Consultation - Orthopedics
History
HPI: This is an 84-year-old male who presented to [facility] emergency department after experiencing bilateral thigh pain, left greater than right, that made it difficult to ambulate. He reports he is very active at baseline, including
bicycling with his just 2 days prior to the onset. He denies any fall or injury. He does have a history of psoriatic arthritis for which she received treatment in the form of infusions in the past. He also reports Lyme arthritis in the past
and states that his current symptoms feel very similar to when he had an active infection. An ultrasound was performed which did demonstrate a joint effusion of his left hip. Interventional radiology aspirated the left hip joint of 7 cc of fluid.
Fluid analysis was performed and cultures are currently in progress. While admitted, he has been afebrile, but prior to admission reports he had a temp of 100.5. Our orthopedic specialty was consulted and to discuss his current joint pain. At
rest, he denies any significant discomfort. It seems to be ambulation and range of motion of the hip increases his symptoms.
Past History
Additional Past Medical History:
MDS
Remote history Lyme disease
Psoriatic arthritis
P A-fib
HTN
HLD
Additional Past Surgical History:
Hernia repair.
Social history: Denies tobacco or alcohol use. Lives with .
Family history: Non contributory
Review of systems: All systems reviewed and negative except for those mentioned in HPI.
Allergies / Home Medications
Allergy/AdvReac Type Severity Reaction Status Date / Time
No Known Allergies Allergy Verified 01/08/25 07:43
�Medication �Instructions �Recorded
atorvastatin 40 mg tablet 40 mg PO DAILY High Cholesterol 01/08/25
carvedilol 25 mg tablet 25 mg PO BID Blood Pressure 01/08/25
latanoprost 0.005 % eye drops 1 drp ophthalmic (eye) QPM Eye 01/08/25
Condition
lisinopril 20 mg tablet 20 mg PO BID Blood Pressure 01/08/25
rivaroxaban 15 mg tablet (Xarelto) 15 mg PO QPM Blood Clot 01/08/25
Prevention/Tx
Vital Signs / Lab Results
Temp Pulse Resp BP Pulse Ox
97.5 F 73 20 108/58 94
02/07/25 07:00 02/07/25 09:24 02/07/25 07:00 02/07/25 09:01 02/07/25 07:00
02/07/25 06:47
02/07/25 07:11
Fluid analysis with white blood cell count 38,000, PMN 75%. No crystals seen. Culture with no growthHPI: This is an 84-year-old male who presented to [facility] emergency department after experiencing bilateral thigh pain, left greater
than right, that made it difficult to ambulate. He reports he is very active at baseline, including bicycling with his just 2 days prior to the onset. He denies any fall or injury. He does have a history of psoriatic arthritis for which she
received treatment in the form of infusions in the past. He also reports Lyme arthritis in the past and states that his current symptoms feel very similar to when he had an active infection. An ultrasound was performed which did demonstrate a
joint effusion of his left hip. Interventional radiology aspirated the left hip joint of 7 cc of fluid. Fluid analysis was performed and cultures are currently in progress. While admitted, he has been afebrile, but prior to admission reports he
had a temp of 100.5. Our orthopedic specialty was consulted and to discuss his current joint pain. At rest, he denies any significant discomfort. It seems to be ambulation and range of motion of the hip increases his symptoms.
Physical Exam
Physical Exam
Constitutional: No Acute Distress, Comfortable and Non-toxic
Eyes: No Conjunctival Hemorrhage and Sclera Anicteric
Oral: No Thrush and No Ulcers
Cardiovascular: Regular Rate and S1/S2; Negative S3/S4
Pulmonary: Clear; Negative Wheezes, Rales or Rhonchi
Gastrointestinal: Soft, Non Tender, Non Distended and Normal Bowel Sounds
Extremities: Negative Edema, Cyanosis, Erythema, Splinter Hemorrhage, Calf Swelling or Venous Insufficiency
Musculoskeletal: Left hip: NTTP over hip or thigh. ROM of hip with pain on IR and noted limitations. This caused pain in the thigh region. Negative SLR, negative JARAD, mildly positive log roll. Right Hip: Limtied IR with pain in anterior
thigh. Negative JARAD, SLR, logroll. Some discomfort with flexion of right knee.
Skin: Warm and Dry; Negative Rash or Jaundice
Neurological: Awake and Alert
Psychological: Calm.
Imaging:
02/05/2025 Lower extremity ultrasound: small left hip joint effusion. Trace joint fluid in the contralateral right hip which was imaged for comparison.
02/05/2025 X-ray left hip: no fracture or dislocation. Bony pelvis intact. Moderate bilateral hip joint space narrowing with subchondral sclerosis, subchondral cysts and marginal osteophytes.
Assessment / Plan
Assessment: Polyarthralgia in setting of elevated inflammatory markers.
Plan: Mr. Aponte's bilateral hip/thigh pain is not coming from septic arthritis. On exam, he is not ill-appearing and at rest he is quite comfortable. Range of motion of his hips do elicit pain in the groin and anterior thigh region. I suspect
his symptoms are coming from either an aggravation of the underlying arthritis, or could be stemming from possible Lyme arthritis/inflammatory arthropathy, which he reports is symptoms feel similar to. Currently, lab work is pending to rule this in
or out. In the meantime, we will continue to follow cultures to ensure no infection is present in his left hip. He may weight-bear as tolerated and work with physical therapy to tolerance. All questions were answered and patient was in agreement
with treatment recommendations.
[2025-02-07 11:18] LABS: Albumin 3.0 g/dl (3.5-5.0)
[2025-02-07] MEDS: VANCOCIN 200 IV (11:53)
[2025-02-07 14:16] LABS: Lyme Antibody Screen, EIA Presump. Positive (Negative)
--- NOTE | 2025-02-07 14:38 | W.PN.ID1 ---
Date of Service
Date of Service: February 07, 2025
Today's Communication
Continue antibiotics.
Assessment / Plan
Left leg pain with flexion; unclear etiology
Leukocytosis
Reported fever
Elevated ESR and CRP
Renal insufficiency
Elevated procalcitonin
- unclear utility / validity in the context of renal insufficiency.
MDS
Remote history Lyme disease
Rheumatoid arthritis
P A-fib
HTN
HLD
Recommendations:
Etiology of left leg discomfort is unclear at this time.
Joint aspiration showed 38K WBC's, with 74% polys suggestive of inflammation +/- infection
Empiric vancomycin initiated last evening. Would continue for now.
Blood cultures, urine culture, and joint fluid cultures are pending.
Continue to monitor white count and temperature curve.
Further recommendations as additional data is returned.
Chief Complaint
-: Other (Left hip pain)
Subjective / Review of Systems
Patient seen and examined. Reports diminished left leg discomfort, but some increase in right leg discomfort today. Underwent left hip aspiration yesterday, with the finding of significant inflammatory cells, and the patient was started on empiric
vancomycin last evening.
Vital Signs / Physical Exam
Vital Signs
Vital Signs
Temp Pulse Resp BP Pulse Ox
97.5 F 73 20 108/58 94
02/07/25 07:00 02/07/25 09:24 02/07/25 07:00 02/07/25 09:01 02/07/25 07:00
Physical Exam
Constitutional: No Acute Distress, Comfortable and Non-toxic
Eyes: No Conjunctival Hemorrhage; Negative Sclera Anicteric
Cardiovascular: S1/S2; Negative S3/S4
Pulmonary: Non Labored
Gastrointestinal: Soft, Non Tender and Non Distended
Musculoskeletal: Other (No hip tenderness.)
Neurological: Awake and Alert
Psychological: Calm
Objective Data
Lab Data
Lab Results
02/07/25 07:11
ESR 69 mm/hour (0-20) H 02/05/25 23:07
Estimated Creat Clear Cancelled 02/07/25 07:11
Lactic Acid 0.8 mmol/L (0.7-2.0) 02/05/25 20:32
Total Bilirubin 1.4 mg/dl (0.2-1.3) H 02/06/25 07:09
AST 18 U/L (17-59) 02/06/25 07:09
ALT 15 U/L (0-50) 02/06/25 07:09
Alkaline Phosphatase 94 U/L (38-126) 02/06/25 07:09
C-Reactive Protein 128.80 mg/L (0.0-10.00) H 02/05/25 14:24
Most recent labs reviewed.
Micro Results:
02/06/25 22:09 Body Fluid Culture - Preliminary
Synovial Fluid No Growth After 18-24 Hours
Gram Stain - Preliminary
02/06/25 14:31 Urine Culture - Final
Urine No Significant Growth
02/05/25 20:32 Blood Culture - Preliminary
Blood/Venous No Growth in 24 hours- Final report to follow
02/05/25 20:32 Blood Culture - Preliminary
Blood/Venous No Growth in 24 hours- Final report to follow
Imaging:
02/05/2025 Lower extremity ultrasound: small left hip joint effusion. Trace joint fluid in the contralateral right hip which was imaged for comparison.
02/05/2025 X-ray left hip: no fracture or dislocation. Bony pelvis intact. Moderate bilateral hip joint space narrowing with subchondral sclerosis, subchondral cysts and marginal osteophytes.
--- NOTE | 2025-02-07 14:47 | W.CON.NEPH ---
Addendum entered and electronically signed by Marci Worley MD 02/07/25 18:09:
Correction: Per Dr Fadi(son)-he has Psoriatic arthritis and not RA
Original Note:
Consultation
-
Date/Time Consultation Requested: 02/07/25 1500
Date/Time Consultation Performed: 02/07/25 1500
Requesting Provider: Estrellita Kaur
Performing Provider: Marci Saldivar
Reason for Consultation: Ildefonso
Medical History
-
Chief Complaint: Left thigh pain
History of Present Illness:
84-year-old male past medical history of recently diagnosed MDS 6 months ago, history of Lyme's disease involving the left knee status post multiple arthrocentesis 20 years ago, rheumatoid arthritis around 20 years ago previously on treatment with
infusion 5yrs ago with out recurrence, paroxysmal atrial fibrillation on Xarelto, hypertension on lisinopril, coreg, hyperlipidemia on statin, CKD3, presenting with left hip and thigh pain and weakness in the for 1day duration and low grade fever
hence presented to ER On 02/05. he reportedly had migrating joint pains for several week and would self resolve.Denies use of NSAIDs. He had Lyme's disease in his left knee over 20 years ago which required multiple rounds of arthrocentesis. This
never recurred. he saw ID and in process of finding the source, left was aspirated and cultures are pending, cell count shows 38k WBC. he now reports right thigh and knee is bothering him more than left. Overall his weakness has greatly improved.
He maintains on antibiotic with Vancomycin. his cr on admit at 1.9 and now upto 2 despite IVF hence nephrology consulted. last cr 1.6 in 05/[address] Hale at [facility]. He offers no rash or cp or cough or sob. No abd pain. no n/v, BM are
loose. No n/v. No hematuria or dysuria. WBC remains elevated and hb decreasing to 7.3, reports never had transfusion before with MDS.
Past Medical History
MDS 6 months ago, history of Lyme's disease involving the left knee status post multiple arthrocentesis 20 years ago, rheumatoid arthritis around 20 years ago previously on treatment with infusion, paroxysmal atrial fibrillation on Xarelto,
hypertension, hyperlipidemia, CKD3
Past Surgical History: Other (hernia repair)
Social History
Tobacco: Non-Smoker
Alcohol: None
Drug: None
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
Family History
Family History: Not Pertinent
Allergies / Home Medications
Allergy/AdvReac Type Severity Reaction Status Date / Time
No Known Allergies Allergy Verified 01/08/25 07:43
�Medication �Instructions �Recorded �Confirmed �Type
atorvastatin 40 mg tablet 40 mg PO DAILY High Cholesterol 01/08/25 01/08/25 History
carvedilol 25 mg tablet 25 mg PO BID Blood Pressure 01/08/25 01/08/25 History
latanoprost 0.005 % eye drops 1 drp ophthalmic (eye) QPM Eye 01/08/25 01/08/25 History
Condition
lisinopril 20 mg tablet 20 mg PO BID Blood Pressure 01/08/25 01/08/25 History
rivaroxaban 15 mg tablet (Xarelto) 15 mg PO QPM Blood Clot 01/08/25 01/08/25 History
Prevention/Tx
Review of Systems
-
All other systems: Negative unless noted
Physical Exam
Vital Signs
Vital Signs
Temp Pulse Resp BP Pulse Ox
97.5 F 73 20 108/58 94
02/07/25 07:00 02/07/25 09:24 02/07/25 07:00 02/07/25 09:01 02/07/25 07:00
Lab Results
Sodium Cancelled 02/07/25 07:11
Potassium Cancelled 02/07/25 07:11
Chloride Cancelled 02/07/25 07:11
Carbon Dioxide Cancelled 02/07/25 07:11
BUN Cancelled 02/07/25 07:11
Creatinine Cancelled 02/07/25 07:11
eGFR Cancelled 02/07/25 07:11
Glucose Cancelled 02/07/25 07:11
Calcium Cancelled 02/07/25 07:11
Albumin 3.0 g/dl (3.5-5.0) L 02/07/25 06:46
Physical Exam
General: Awake, Alert, Oriented, AOx3, No Distress and Nontoxic
HEENT: EOMI, Anicteric, Conjunctivae Clear, Ear/Nose Intact, Facial Symmetry and Neck Supple
Respiratory: Clear, Wheezes, Normal Excursion and Nonlabored Respirations
Cardiac: S1/S2 and Regular Rate/Rhythm
Breast: Deferred by me
Abdomen: Soft, Nontender and Nondistended
Musculoskeletal: No Cyanosis and No Edema
Skin: No Rash
Neuro: Nonfocal/Grossly Intact
Psych: Mood/afflect pleasant, Insight/judgement good and Appropriate
Data Reviewed
-
Labs: Labs Reviewed by me and Discussed with Patient
Assessment/Plan
-
IMP:
SIRS - unclear etiology
Left hip pain
b/l prox thigh pain and weakness
ILDEFONSO on CKD 3b-baseline @ 1.6 in 05/2024-follows Dr Hale at [facility]
Myelodysplastic syndrome/macrocytic anemia
History of left knee joint infection secondary to Lyme's disease
History of psoriatic arthritis-Previously on immunotherapy/infusion [address] Peres
Paroxysmal atrial fibrillation
Essential hypertension
Hyperlipidemia
mild hyponatremia
Plan:
A/w left thigh pain and weakness, SIRS
Ildefonso with CKD-baseline cr 1.5
UA with pyuria and bacteruria,2+alb, check U PCR, U cx neg
renal US shows no hydro, large simple renal cysts, bladder scan 25cc
monitor UOP, Fena is 0.6 would cont IVF for now
also check serologies with known h/o RA and now with joint pains
h/h decreasing monitor with h/o MDS, prn trasnfusion
BP low normal, holding ACEI and cont BB
avoid nephrotoxins
mild hyponatremia likely from pain, stable and monitor
labs in am
d/w pt in detail
[2025-02-07 15:00] VITALS: BP 103/56
--- NOTE | 2025-02-07 15:28 | CM ---
Reviewed the chart notes and spoke with the patient at the bedside. Patient receiving IV abx. Patient ambulating with rolling walker. CM continues to be available to patient/family and is monitoring medical plan for needs at discharge.
Plan: Discharge plans will depend on the patient's progress.
--- NOTE | 2025-02-07 16:20 | PTCARENOTE ---
Patient with clear/ mucous bm. Patient states he has been having this x4 days. made aware. No new orders at this time.
[2025-02-07 17:21] LABS: Hematocrit 25.2 % (39.0-52.0); Hemoglobin 8.6 g/dL (13.0-18.0); Mean Corp Hgb Conc. 34.1 g/dL (33.0-37.0); Mean Corpuscular Volume 113.0 fL (80.0-94.0); Platelet Count 153 10^3/uL (130-400); Red Cell Dist. Width 14.4 % (11.5-14.5)
[2025-02-07] MEDS: XALATAN OPHTHALMIC SOLUTION 1 DROP OPHTH (17:25)
[2025-02-07 23:25] VITALS: BP 121/61
[2025-02-08] MEDS: TYLENOL 650 MG PO (04:03)
[2025-02-08 07:00] VITALS: BP 104/56
--- NOTE | 2025-02-08 07:21 | W.PN.HOSP.TC ---
Addendum entered and electronically signed by Lit Rizzo MD 02/08/25 21:43:
Attending Addendum-
I saw and evaluated the patient. I reviewed the resident�s note and agree with findings and plan as documented in the resident�s note. Sub:patient states right knee pain is greatly improved. started on left thigh ->right thigh->right knee. Able to
ambulate without diffiiculty. No further fevers. Patient denies all other constitutional sxs. Requesting to go home. No blood in stools. Full 12 point ROS reviewed and negative except as documented Exam: Vitals reviewed in chart GEN-NAD heart RRR
no MRG lungs clear abd soft LE no edema Neuro AAO x 3 MS 5/5 b/l LE non tender thighs b/l pulses intact DP B/L right knee- mild effusion palpated full ROM Skin no rash Back NTTP no CVA tenderness
Plan:
# SIRS - unclear etiology , b/l prox thigh pain and weakness
-possibly lyme related
- leukocytosis resolving
- urine cx -NGTD
- Hip US -left hip joint effusion
- Blood cultures NGTD
- Lyme presumptive positive, western blot-P
- SHELLEY screen neg
- IR joint aspiration 02/06- wbc 38K majority PMNs- not infectious likely inflammatory-cx NG
- DC vancomycin
- restart Xarelto
- repeat CBC as OP
- d/w ID- stable for DC on doxy x 28 days to cover lyme
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
-baseline @ 1.5
-resolving
-check FeNa->prerenal
-renal US-Simple right renal cyst measures 8.3 x 6.3 x 6.2 cm. There are two simple left renal cysts, one parapelvic 1.7 x 2.5 x 1.5 cm and additional medial measuring 3.4 x 3.5 x 3.8 cm.
-No evidence of renal collecting system dilatation bilaterally.
-cont PO fluid as OP
-repeat BMP as OP
-hold lisinopril
# Acute Anemia
- likely dilutional
- transfusion for HB < 7
- check peripheral smear - P
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
# Decreased Urine Output
- resolved
# Leukocytosis
- resolving
- repeat cbc as OP
# Hyponatremia- mild
-resolved
# Myelodysplastic syndrome/macrocytic anemia- vit [id number] as OP, folate-WNL, tx for hb < 7, bmbx on 01/08- appreciate heme onc input f/u set up as OP
# History of left knee joint infection secondary to Lyme's disease
# History of psoriatic arthritis-Previously on immunotherapy/infusion Rheum Dr. Peres
# Paroxysmal atrial fibrillation-restart Xarelto
# Essential hypertension- hold lisinopril, cont Coreg
# Hyperlipidemia-hold atorvastatin for now
DNR/DNI->Full confirmed with POA
DVT prophylaxis�SCDs
Regular diet
Time spent coordinating care, DC planning, review of DC plan of care with resident, transition of care, review of records, med rec/scripts sent electronically, consults, notes, d/w consultants, nursing, ID, and CM� 33 mins >50% of this time was
devoted to counseling and coordination of care
Original Note:
Today's Communication/Plan
-
Discharge home today on PO Doxycycline
For out patient follow up and review of pending results with Hematology/oncology, Nephrology
Assessment / Plan
Assessment / Plan
#Systemic inflammatory response syndrome of unclear pathology
WBC down to 11.3, ESR-69, CRP-128.8, Procalcitonin-0.47, CK - 97N
-ID Consult noted with thanks
-Lyme serology prelim positive (IgG/ IgM) pending
-Commence PO Doxycycline 100mg bid X 28days
- Other infectious disease ruled out; Negative blood, urine, synovial fluid culture and blood parasite
-Discharge home
Shelley testing SHELLEY IgG (PR3, Myeloperoxidase, C3,C4) Pending
#Anemia
#History of Myelodysplastic syndrome
-RBC- 1.91, Hb 7.5
-Hemonc consult noted with thanks
-Out patient follow up
#Acute kidney injury on CKD
--Nephro consult noted with thanks
- Fena is 0.6
-Hold lisinopril
-Cont on IVF
-Urine output since admission- I/O 480ml
-Elevated BUN/Cr (32/2.0)
-Repeat BUN/Cr (30/1.8)
#Paroxysmal atrial fibrillation
- Continue Xarelto
-Continue Coreg
#Essential hypertension
- Discontinue lisinopril,
-Continue Coreg
#Hyperlipidemia
- Hold statin,
Full code
Regular diet
Anticipated Discharge: Today
Subjective/Interval History
-
Date of Service: February 08, 2025
Patient seen sitting out of bed
Hip/Thigh pain has subsided
C/O Pain in the right knee
Having watery bowel movement, was clear mucoid yesterday and watery brown today
Objective Data
-
Vital Signs:
Vital Signs
Temp Pulse Resp BP Pulse Ox
98.9 F 66 20 121/61 96
02/07/25 23:25 02/07/25 23:25 02/07/25 23:25 02/07/25 23:25 02/07/25 23:25
I&O
02/07/25 02/08/25 02/09/25
06:59 06:59 06:59
Intake Total 480 / 480 840 / 840
Output Total 100 / 100 1400 / 1400
Balance 380 / 380 -560 / -560
Review of Systems
-
History Source: Patient
Constitutional: Reports No Symptoms
EENT: Reports No Symptoms Reported
Respiratory: Reports No Symptoms
Cardiac: Reports No Symptoms
Abdomen/GI: Reports Diarrhea and Other (Produced clear mucoid stool today)
Genitourinary: Reports No Symptoms
Musculoskeletal: Reports Arthralgias (hip and thigh pain)
Physical Exam
-
General: Well Developed and No Apparent Distress
HEENT: Normocephalic
Respiratory: Clear to Auscultation
Cardiac: Regular Rhythm and S1/S2
GI: Soft and Nondistended
Musculoskeletal: No Clubbing, No Cyanosis, No Edema, Clubbing and Edema, Right Lower Extrem (Right knee tenderness lateral to the patellar, no obvious swelling, no crepitus. ROM preserved)
Psych: Calm
Data Reviewed
-
Labs: Labs Reviewed by me, Discussed with Physician and Discussed with Patient
[2025-02-08 08:07] LABS: Hematocrit 21.9 % (39.0-52.0); Hemoglobin 7.5 g/dL (13.0-18.0); Mean Corp Hgb Conc. 34.2 g/dL (33.0-37.0); Mean Corpuscular Volume 114.7 fL (80.0-94.0); Platelet Count 158 10^3/uL (130-400); Red Cell Dist. Width 14.4 % (11.5-14.5)
--- NOTE | 2025-02-08 08:20 | W.PN.UPDATE ---
Update Note
Progress Note Update
Patient was seen and examined this morning. Reports pain is essentially resolved in his left lower extremity reports new onset of traveling pain and now more focused about his knee with some localized swelling. Aspirate showing inflammation
approximately 38,000 with no growth to date. Suspect more likely inflammatory arthropathy but also Lyme arthropathy with a differential.
Currently no orthopedic intervention/operative mention indicated. Will continue to follow aspirate labs. If recommended by primary/infectious disease can consider knee aspiration if recommended however in the setting of other joint aspiration do
not suspect infected
[2025-02-08 08:34] LABS: Blood Urea Nitrogen 32 mg/dl (9-20); Calcium 7.2 mg/dl (8.4-10.2); Carbon Dioxide 20 mmol/L (22-30); Chloride 109 mmol/L (98-107); Estimated Creatinine Clearance 34 ml/min; Glucose 103 mg/dl (70-99); Potassium 4.0 mmol/L (3.5-5.1); Sodium 135 mmol/L (135-145); eGFR 37.12
[2025-02-08] MEDS: NSS 1000 IV (08:54)
[2025-02-08] MEDS: COREG 25 MG PO (08:55)
[2025-02-08 09:14] LABS: ANA, IgG Reflex to HEp-2 None Detected (None Detected)
--- NOTE | 2025-02-08 09:30 | W.PN.NEPH.PH ---
Today's Communication / Plan
-
Can discontinue IV fluids after current bag completed
Serological workup pending
Follow-up BMP in a.m.
Assessment/Plan
-
IMP:
SIRS - unclear etiology
Left hip pain
b/l prox thigh pain and weakness
MATIAS on CKD 3b-baseline @ 1.6 in 05/2024-follows Dr Hale at [facility]
Myelodysplastic syndrome/macrocytic anemia
History of left knee joint infection secondary to Lyme's disease
History of psoriatic arthritis-Previously on immunotherapy/infusion [address] Peres
Paroxysmal atrial fibrillation
Essential hypertension
Hyperlipidemia
mild hyponatremia
Plan:
A/w left thigh pain and weakness, SIRS
Matias with CKD-baseline cr 1.5 now at 1.8, nonoliguric ~1400cc
UA with pyuria and bacteruria,2+alb, check U PCR, U cx neg
renal US shows no hydro, large simple renal cysts, bladder scan 25cc
monitor UOP, Fena is 0.6 , we can continue current bag of IV fluids and then discontinue and observe
also checked serologies with known h/o RA and now with joint pains, JUMA negative
h/h decreasing monitor with h/o MDS, prn trasnfusion
BP low normal, holding ACEI and cont BB
avoid nephrotoxins
mild hyponatremia likely from pain, stable and monitor
labs in am
d/w pt in detail
-
-
Date of Service: February 08, 2025
CC / HPI / ROS
-
Chief Complaint:
MATIAS
History of Present Illness:
Creatinine unchanged at 1.8
Hemodynamically stable but blood pressure lower than normal
Review of Systems:
No evidence of obstructive uropathy
Notes right knee pain today
No chest pain or shortness of breath no fevers
Labs
-
Labs:
WBC 11.3 10^3/uL (4.8-10.8) H 02/08/25 05:31
RBC 1.91 10^6/uL (4.70-6.10) L 02/08/25 05:31
Hgb 7.5 g/dL (13.0-18.0) L 02/08/25 05:31
Hct 21.9 % (39.0-52.0) L 02/08/25 05:31
Plt Count 158 10^3/uL (130-400) 02/08/25 05:31
Sodium Cancelled 02/08/25 07:39
Potassium Cancelled 02/08/25 07:39
Chloride Cancelled 02/08/25 07:39
Carbon Dioxide Cancelled 02/08/25 07:39
BUN Cancelled 02/08/25 07:39
Creatinine Cancelled 02/08/25 07:39
eGFR Cancelled 02/08/25 07:39
Glucose Cancelled 02/08/25 07:39
Calcium Cancelled 02/08/25 07:39
Albumin 3.0 g/dl (3.5-5.0) L 02/07/25 06:46
Physical Exam
-
Vital Signs:
Vital Signs
Temp Pulse Resp BP Pulse Ox
98.9 F 79 20 104/56 96
02/07/25 23:25 02/08/25 08:55 02/07/25 23:25 02/08/25 08:55 02/07/25 23:25
Cardiovascular:: Regular rate and rhythm
Respiratory:: Bilateral: CTA
Lung Excursion:: Normal
Abdomen:: Nontender and Soft
Bowel Sounds:: Normal
Extremity Edema:: None: Bilateral:
Quintero Catheter: No
--- NOTE | 2025-02-08 09:45 | PHA.VAN.FU ---
Addendum entered and electronically signed by Vianey Cid [facility] 02/08/25 09:57:
Agree with assessment and plan
Original Note:
Vancomycin Assessment / Plan
- Assessment
Renal Function: SCR Decreasing
WBC's are: Trending Down
In the past 24 hrs, patient has been: Afebrile
- Assessment - Therapeutic Drug Monitoring
Random Level: 11.9 - drawn ~17.5H after dose of 1000mg
- Dosing Plan
Dosing by Level: Re-dose today (give 1250mg x1 dose)
- Monitoring Plan
Random Level: 02/09 0600
- Follow Up
Pharmacy will continue to follow.
Vancomycin Follow UP
- -
Patient Age: 84
Patient Sex: Male
Vancomycin Day #: 3
Indication: Bone And Joint
Requesting Provider: Dr. Vale/Dr. Orosco
Pertinent Antimicrobial Allergies:
no pertinent antimicrobial allergies
Height / Weight:
Height 5 ft 11 in
Actual Weight 95.51 kg
- Vital Signs / Lab Results
Temp Pulse Resp BP Pulse Ox
98.9 F 79 20 104/56 96
02/07/25 23:25 02/08/25 08:55 02/07/25 23:25 02/08/25 08:55 02/07/25 23:25
Lab Results - Hematology
02/05/25 02/06/25 02/07/25
14:24 07:09 06:47
WBC 16.4 H 16.1 H 16.4 H
Band Neutrophils 0 0
02/07/25 02/08/25
17:14 05:31
WBC 16.6 H 11.3 H
Band Neutrophils
Lab Results - Chemistry
02/05/25 02/06/25 02/07/25
14:24 07:09 06:46
BUN 38 H 31 H 33 H
Creatinine 1.9 H 1.8 H 2.0 H
Estimated Creat Clear 34 30
Albumin 4.1 3.5 3.0 L
02/07/25 02/08/25 02/08/25
07:11 05:31 07:39
BUN Cancelled 32 H Cancelled
Creatinine Cancelled 1.8 H Cancelled
Estimated Creat Clear Cancelled 34 Cancelled
Albumin
02/05/25
20:32
Lactic Acid 0.8
Microbiology Results
02/07/25 17:14 Blood Parasites Smear - Preliminary
Blood/Venous
02/05/25 20:32 Blood Culture - Preliminary
Blood/Venous No Growth in 48 hours- Final report to follow
02/05/25 20:32 Blood Culture - Preliminary
Blood/Venous No Growth in 48 hours- Final report to follow
02/06/25 22:09 Body Fluid Culture - Preliminary
Synovial Fluid No Growth After 18-24 Hours
Gram Stain - Preliminary
02/06/25 14:31 Urine Culture - Final
Urine No Significant Growth
Therapeutic Drug Monitoring
Random Vancomycin 11.9 ug/ml 02/08/25 05:31
--- NOTE | 2025-02-08 10:27 | CON.ONC ---
Consultation
-
Date Consultation Requested: 02/08/25
Date Consultation Performed: 02/08/25
Requesting Provider: Dr. Estrellita Vale -resident
Performing Provider: Dr. Stefanie Smith
Reason for Consultation: anemia
Impression
Impression
fever 100.5F -Bcx, Ucx, left hip aspirate are NTD. parasite smear negative
Left hip joint effusion s/p aspiration
migratory joint pain
anemia
ILDEFONSO on CKD
Plan
Plan
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 He has follow up with Dr. Valerio next week to discuss treatment options and consideration of FREDERICK for management of his anemia.
Patient History
History of Present Illness
84yo M who had left hip aspiration with improvement of LLE pain admitted with RLE pain and fever 100.5F. His pain is worse with movement and weightbearing. He feels like he is having migratory joint pain. He is very active riding his bike and
gardening. He denies any tick bites but reports that his knee pain feels like when he had pain during a prior Lyme infection. He has RA with prior infusion therapies, however, says he has not needed in 'years.'
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
favor chronic myelomonocytic leukemia. No evidence of increased blasts.
Past-Medical/Surgical History
PMH skin cancer, RA, cataracts, HTN, CKD
PSH hernia repair
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
Family denies malignancy
Patient Medication
�Medication �Instructions �Recorded �Confirmed �Last Taken �Type
atorvastatin 40 mg tablet 40 mg PO DAILY High Cholesterol 01/08/25 01/08/25 01/08/25 History
carvedilol 25 mg tablet 25 mg PO BID Blood Pressure 01/08/25 01/08/25 01/08/25 History
latanoprost 0.005 % eye drops 1 drp ophthalmic (eye) QPM Eye 01/08/25 01/08/25 Unknown History
Condition
lisinopril 20 mg tablet 20 mg PO BID Blood Pressure 01/08/25 01/08/25 01/08/25 History
rivaroxaban 15 mg tablet (Xarelto) 15 mg PO QPM Blood Clot 01/08/25 01/08/25 Unknown History
Prevention/Tx
Active Medications
Generic Name Dose Route Start Last Admin
Trade Name Freq PRN Reason Stop Dose Admin
Acetaminophen 650 mg 02/05/25 22:09 02/08/25 04:03
Acetaminophen 325 Mg Tablet PO 03/05/25 22:08 650 mg
Q4HPRN PRN Administration
mild pain/TEMPLETON/temp> 100.4F
Atorvastatin Calcium 40 mg 02/06/25 08:00 02/06/25 09:03
Atorvastatin (Lipitor) 40 Mg Tablet PO 03/06/25 07:59 40 mg
On Hold: 02/06/25 23:05 DAILY KEVEN Administration
Carvedilol 25 mg 02/06/25 08:00 02/08/25 08:55
Carvedilol 25 Mg Tablet PO 03/06/25 07:59 25 mg
BID KEVEN Administration
Sodium Chloride 1,000 mls @ 100 mls/hr 02/06/25 12:00 02/08/25 08:54
Nss IV 1,000 mls
.Q10H KEVEN Administration
Vancomycin HCl 1 each/ Device 0 mls @ 0 mls/hr 02/06/25 18:10
IV
PER PROTOCOL KEVEN
Protocol
As Directed
Vancomycin HCl 1,250 mg/ 275 mls @ 183.33 mls/hr 02/08/25 11:00
Sodium Chloride IV 02/08/25 12:29
ONCE ONE
Protocol
Latanoprost 1 drop 02/06/25 18:00 02/07/25 17:25
Latanoprost 0.005% (Ophthalmic Solution) 2.5 Ml Bottle OPHTH 03/06/25 17:59 1 drop
QPM KEVEN Administration
Sodium Chloride 0 flush 02/06/25 13:00
Sodium Chloride 0.9% (Flush) Syringe IV 03/06/25 12:59
PER PROTOCOL KEVEN
Review of Systems
-
ROS is notable for HPI, otherwise negative
Physical Exam
-
General: No Apparent Distress
HEENT: Moist Mucous Membranes; Negative Jaundice
Cardiology: Normal Sinus Rhythm
Pulmonary: Clear
GI: Soft
Extremities: Pulses Present
Neurology: Non Focal
Skin: Warm
Psych: Calm
Labs
Lab Results
WBC 11.3 10^3/uL (4.8-10.8) H 02/08/25 05:31
RBC 1.91 10^6/uL (4.70-6.10) L 02/08/25 05:31
Hgb 7.5 g/dL (13.0-18.0) L 02/08/25 05:31
Hct 21.9 % (39.0-52.0) L 02/08/25 05:31
MCV 114.7 fL (80.0-94.0) H 02/08/25 05:31
MCH 39.3 pg (27.0-31.0) H 02/08/25 05:31
MCHC 34.2 g/dL (33.0-37.0) 02/08/25 05:31
RDW 14.4 % (11.5-14.5) 02/08/25 05:31
Plt Count 158 10^3/uL (130-400) 02/08/25 05:31
MPV 10.4 fL (7.4-10.4) 02/08/25 05:31
Creatinine Cancelled 02/08/25 07:39
Vital Signs
Vital Signs
Temp Pulse Resp BP Pulse Ox
98.4 F 79 20 104/56 99
02/08/25 07:00 02/08/25 08:55 02/08/25 07:00 02/08/25 08:55 02/08/25 07:00
[2025-02-08] MEDS: VANCOCIN 275 MG IV (11:53)
[2025-02-08] MEDS: VITAMIN B-12 1000 MCG PO (11:53)
--- NOTE | 2025-02-08 12:28 | CM ---
Addendum entered by Charlene Sánchez RN 02/08/25 15:33:
IMM on chart.
Original Note:
Reviewed the chart notes and spoke with the patient at the bedside. Patient anticipates being discharged to home with no needs. CM continues to be available to patient/family and is monitoring medical plan for needs at discharge.
Plan: Discharge to home when medically stable.
--- NOTE | 2025-02-08 13:02 | W.PN.ID1 ---
Date of Service
Date of Service: February 08, 2025
Today's Communication
Discontinue vancomycin. Transition to oral doxycycline x 28 days.
Assessment / Plan
Left leg pain with flexion; unclear etiology
Leukocytosis
Reported fever
Elevated ESR and CRP
Renal insufficiency
Elevated procalcitonin
- unclear utility / validity in the context of renal insufficiency.
MDS
Remote history Lyme disease
Rheumatoid arthritis
P A-fib
HTN
HLD
Recommendations:
Etiology of left leg discomfort is unclear at this time.
Joint aspiration showed 38K WBC's, with 74% polys suggestive of inflammation +/- infection
Left hip aspiration without growth. Lyme serology presumptively positive.
I had a long discussion with the patient regarding findings on serology and cultures. The patient's migratory arthralgias and presumptive positive Lyme serology suggest possible infection.
Discontinue further vancomycin.
Would place on a 28-day course of doxycycline and observe.
Chief Complaint
-: Other (Left hip pain)
Subjective / Review of Systems
Patient seen and examined. Reports resolution of left hip discomfort. Now he has some right knee discomfort, but no swelling. Denies fevers or chills.
Vital Signs / Physical Exam
Vital Signs
Vital Signs
Temp Pulse Resp BP Pulse Ox
98.4 F 79 20 104/56 99
02/08/25 07:00 02/08/25 08:55 02/08/25 07:00 02/08/25 08:55 02/08/25 07:00
Physical Exam
Constitutional: No Acute Distress, Comfortable and Non-toxic
Eyes: No Conjunctival Hemorrhage; Negative Sclera Anicteric
Cardiovascular: S1/S2; Negative S3/S4
Pulmonary: Non Labored
Gastrointestinal: Soft, Non Tender and Non Distended
Musculoskeletal: Other (No left hip tenderness. No right knee swelling or erythema.)
Neurological: Awake and Alert
Psychological: Calm
Objective Data
Lab Data
Lab Results
02/08/25 05:31
02/08/25 07:39
ESR 69 mm/hour (0-20) H 02/05/25 23:07
Estimated Creat Clear Cancelled 02/08/25 07:39
Lactic Acid 0.8 mmol/L (0.7-2.0) 02/05/25 20:32
Total Bilirubin 1.4 mg/dl (0.2-1.3) H 02/06/25 07:09
AST 18 U/L (17-59) 02/06/25 07:09
ALT 15 U/L (0-50) 02/06/25 07:09
Alkaline Phosphatase 94 U/L (38-126) 02/06/25 07:09
C-Reactive Protein 128.80 mg/L (0.0-10.00) H 02/05/25 14:24
Most recent labs reviewed.
Micro Results:
02/07/25 17:14 Blood Parasites Smear - Final
Blood/Venous
02/06/25 22:09 Body Fluid Culture - Preliminary
Synovial Fluid No Growth After 48 Hours
Gram Stain - Preliminary
02/05/25 20:32 Blood Culture - Preliminary
Blood/Venous No Growth in 48 hours- Final report to follow
02/05/25 20:32 Blood Culture - Preliminary
Blood/Venous No Growth in 48 hours- Final report to follow
02/06/25 14:31 Urine Culture - Final
Urine No Significant Growth
Imaging:
02/05/2025 Lower extremity ultrasound: small left hip joint effusion. Trace joint fluid in the contralateral right hip which was imaged for comparison.
02/05/2025 X-ray left hip: no fracture or dislocation. Bony pelvis intact. Moderate bilateral hip joint space narrowing with subchondral sclerosis, subchondral cysts and marginal osteophytes.
Care Review
Plan reviewed with: Physician (Hospitalist)
[2025-02-08 15:00] VITALS: BP 111/54
--- NOTE | 2025-02-08 18:54 | W.DCSUMMARY ---
Addendum entered and electronically signed by Lit Rizzo MD 02/11/25 13:11:
Read, reviewed, and agree
John Rizzo MD
Original Note:
Documented by User: Estrellita Vale MD, Resident 02/08/25 23:17
Discharge Summary
Discharge Data
Date of Admission: 02/05/25
Date of Discharge: 02/08/25
-
Pending Results: Yes (Shelley testing SHELLEY IgG (PR3, Myeloperoxidase, C3,C4) )
Additional Pending Results:
Lyme serology prelim positive (IgG/ IgM) pending. Synovial fluid cytology
Hospital Course
Discharging Physician : Estrellita Vale MD, Matthias Murrieta MD
Disposition : Home
Primary care physician : Kaylah Weber MD
Principal Discharge diagnosis :
Systemic inflammatory response syndrome, unclear etiology
Acute kidney injury on CKD 3b
Acute anemia
Chronic Discharge diagnosis :
Paroxysmal Afib
Essential hypertension
Hyperlipidemia
Hospital Course :
84-year-old male past medical history of previous psoriatic arthritis, lyme monoarthritis, Paroxysmal Afib, Essential hypertension, Hyperlipidemia presented to [facility] ED on the 02/05/2025 following and sudden onset of left hip pain that was worse with
mobility and weight bearing with associated thigh pain and weakness. He gave a history of being active bike riding outdoors 2 days prior and fever on day of presentation.
On presentation at the ED, he was afebrile , he had mild left hip pain worsening with elevation and internal rotation.
He was subsequently admitted and worked up.
While on admission, his symptoms displayed a migratory pattern, involving the right hip and thighs and subsequently his right knee.
While on admission, the following problems were addressed
# SIRS - unclear etiology , b/l prox thigh pain and weakness
#Elevated WBC-16.4, ESR-69, CRP-128.8, Procalcitonin-0.47, CK - 97N
-IR-US-joint aspiration 02/06- wbc 38K majority PMNs
-He was placed on Vancomycin
-Synovial fluid, blood and, urine culture negative
- Lyme presumptive positive, western blot-P.
#Possibly lyme related
-Vancomycin was discontinued
- d/w ID- stable for DC on doxy x 28 days to cover lyme
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
-Elevated BUN/Cr (31/1.8)baseline @ 1.5
-FeNa->prerenal
-Renal US-Simple right renal cyst measures 8.3 x 6.3 x 6.2 cm. There are two simple left renal cysts, one parapelvic 1.7 x 2.5 x 1.5 cm and additional medial measuring 3.4 x 3.5 x 3.8 cm.
No evidence of renal collecting system dilatation bilaterally.
-IVF Normal saline was given
-Nephrology was consulted
-Hold lisinopril
-cont PO fluid as OP
-repeat BMP as OP
# Acute Anemia
-Hem onc was consulted
-Likely dilutional
-Peripheral smear done was negative for - Parasite
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
Important imaging findings :
Hip Xray; 02/05/2025 Moderate osteoarthrosis of the bilateral hips.
LE USS; 02/05/2025 Small left hip joint effusion.
Trace joint fluid in the contralateral right hip, imaged for comparison, and likely within the physiologic limits of normal.
Renal US; 02/06/2025 There are two simple left renal cysts, one parapelvic 1.7 x 2.5 x 1.5 cm and additional medial measuring 3.4 x 3.5 x 3.8 cm.
No evidence of renal collecting system dilatation bilaterally.
Procedure findings :
Arthrogram; 02/06/2025 Technically successful ultrasound-guided aspiration of the left hip joint, yielding 7 mL of nonpurulent joint fluid. Fluid was sent for laboratory analysis.
Discharge Plan
-
Patient Disposition: Home (Routine Discharge)
Discharge Diagnosis/Procedures: Lyme polyarthritis
Systemic inflammatory syndrome
Acute kidney injury on ckd
Macrocytic anemia
Condition: Fair
Diet: No restrictions
Activity: No restrictions
Driving Restrictions: As prior to admission
Bathing Restrictions: None
Referrals:
Colin Valerio DO [Active, Hematology / Oncology] - in less than 1 week
Clay Weber MD, MD [Family Provider, Internal Medicine]
Marci Worley MD [Active, Nephrology]
Additional Discharge Medication Instructions: Take Vit B12 100MCG Tab Daily
Take Doxycycline 100mg by mouth twice daily for 28 days
Please follow up with the hematology/oncology within 1 week for additional recommendation
Follow up with surveillance sensor operator and nephrology within 1 week
Prescriptions:
New
doxycycline hyclate 100 mg Capsule
100 mg PO BID Qty: 56 0RF
cyanocobalamin (vitamin B-12) [Vitamin B-12] 1,000 mcg Tablet
1,000 mcg PO DAILY Qty: 30 0RF
Continued
latanoprost 0.005 % Drops
1 drp OPHTHALMIC (EYE) QPM
atorvastatin 40 mg Tablet
40 mg PO DAILY
carvedilol 25 mg Tablet
25 mg PO BID
rivaroxaban [Xarelto] 15 mg Tablet
15 mg PO QPM
Held
lisinopril 20 mg Tablet
20 mg PO BID
Hold Instructions: Resume on 02/22/25. Resume after review with the surveillance sensor operator
Discharge Orders:
Discharge Patient (As Directed); Ordered 02/08/25
Ordered By: Estrellita Vale
Discharge Date and Time
Discharge Date/Time: 02/08/25 17:36
Print Language: OCCITAN

Documented by User: Lit Rizzo MD 02/11/25 13:11
Discharge Summary
Discharge Data
Date of Admission: 02/05/25
Date of Discharge: 02/11/25
Discharge Plan
-
Patient Disposition: Home (Routine Discharge)
Discharge Diagnosis/Procedures: Lyme polyarthritis
Systemic inflammatory syndrome
Acute kidney injury on ckd
Macrocytic anemia
Condition: Fair
Diet: No restrictions
Activity: No restrictions
Driving Restrictions: As prior to admission
Bathing Restrictions: None
Referrals:
Colin Valerio DO [Active, Hematology / Oncology] - in less than 1 week
Clay Weber MD, MD [Family Provider, Internal Medicine]
Marci Worley MD [Active, Nephrology]
Additional Discharge Medication Instructions: Take Vit B12 100MCG Tab Daily
Take Doxycycline 100mg by mouth twice daily for 28 days
Please follow up with the hematology/oncology within 1 week for additional recommendation
Follow up with surveillance sensor operator and nephrology within 1 week
Prescriptions:
New
doxycycline hyclate 100 mg Capsule
100 mg PO BID Qty: 56 0RF
cyanocobalamin (vitamin B-12) [Vitamin B-12] 1,000 mcg Tablet
1,000 mcg PO DAILY Qty: 30 0RF
Continued
latanoprost 0.005 % Drops
1 drp OPHTHALMIC (EYE) QPM
atorvastatin 40 mg Tablet
40 mg PO DAILY
carvedilol 25 mg Tablet
25 mg PO BID
rivaroxaban [Xarelto] 15 mg Tablet
15 mg PO QPM
Held
lisinopril 20 mg Tablet
20 mg PO BID
Hold Instructions: Resume on 02/22/25. Resume after review with the surveillance sensor operator
Discharge Orders:
Discharge Patient (As Directed); Ordered 02/08/25
Ordered By: Estrellita Vale
Discharge Date and Time
Discharge Date/Time: 02/08/25 17:36
Print Language: OCCITAN
[2025-02-10 17:27] LABS: Lyme Ab Western Blot IgG Positive (Negative); Lyme Ab Western Blot IgM Negative (Negative)
[2025-02-10 20:34] LABS: Serine Protease-3, IgG 1 AU/mL (0-19)
[2025-02-13 02:30] LABS: Lyme Disease DNA by PCR Not Detected; Lyme Source Synovial fluid
== END 2025-02-08 17:36 | disposition home or self-care (01) | DRG 565 ==
LOC: 2 NORTH 21:01
PROVIDERS: Internal Medicine Infectious Disease; Radiology Vascular & Interventional Radiology; Student in an Organized Health Care Education/Training Program; ADMITTING PHYSICIAN Hospitalist; ATTENDING PHYSICIAN Family Medicine; CONSULT PHYSICIAN Internal Medicine; CONSULT PHYSICIAN Student in an Organized Health Care Education/Training Program; EMERGENCY PHYSICIAN Emergency Medicine; FAMILY PHYSICIAN Internal Medicine; OTHER PHYSICIAN Internal Medicine Infectious Disease; OTHER PHYSICIAN Nurse Practitioner Acute Care
PROC: 0S9B3ZX Drainage of Left Hip Joint, Percutaneous Approach, Diagnostic (ICD-10-PCS; 2025-02-06)
DX: M25.452 Effusion, left hip (principal); C93.10 Chronic myelomonocytic leukemia not having achieved remission; R65.10 Systemic inflammatory response syndrome (SIRS) of non-infectious origin without acute organ dysfunction; N17.9 Acute kidney failure, unspecified; E87.1 Hypo-osmolality and hyponatremia; M16.0 Bilateral primary osteoarthritis of hip; N18.32 Chronic kidney disease, stage 3b; I12.9 Hypertensive chronic kidney disease with stage 1 through stage 4 chronic kidney disease, or unspecified chronic kidney disease; D53.9 Nutritional anemia, unspecified; L40.50 Arthropathic psoriasis, unspecified; I48.0 Paroxysmal atrial fibrillation; Z66 Do not resuscitate; N28.1 Cyst of kidney, acquired; M06.9 Rheumatoid arthritis, unspecified; Z79.01 Long term (current) use of anticoagulants; Z79.899 Other long term (current) drug therapy; Z85.828 Personal history of other malignant neoplasm of skin; E78.00 Pure hypercholesterolemia, unspecified
CPT/HCPCS: 20610; 73502; 76775; 76882; 76942; 80048; 80053; 80202; 81003; 81015; 82040; 82550; 82570; 82607; 82746; 83516; 83605; 84145; 84156; 84300; 84443; 85025; 85027; 85652; 86038; 86140; 86160; 86617; 86618; 87015; 87040; 87070; 87086; 87205; 87207; 87476; 87811; 88112; 88305; 89051; 89060; 99285